=== PATIENT | female | born 1955 | race Caucasian/White ===

== ENCOUNTER → 2016-09-20 | Outpatient (CLI) | payer MEDICAID ==
[~2016-09-20] MED LIST: ARICEPT5 MG PO; COLACE100 MG PO; DILANTIN100 MG PO; LAMICTAL200 MG PO; LISINOPRIL-HCT1 EACH PO; LISINOPRIL10 MG PO; NEURONTIN100 MG PO; NEXIUM40 MG PO; PAROXETINE HCL30 MG PO; PAXIL20 MG PO; PAXIL30 MG PO; PRILOSEC20 MG PO; SYNTHROID88 MCG PO; TYLENOL325 MG PO; VITAMIN B-121000 MCG PO; VITAMIN D3400 UNIT PO; ZOCOR10 MG PO
== END | disposition short-term general hospital (02) ==
LOC: CLNEUR 13:23
DX: G40.909 Epilepsy, unspecified, not intractable, without status epilepticus (principal); Z79.899 Other long term (current) drug therapy